=== PATIENT | male | born 1985 | race Caucasian/White ===

== ENCOUNTER 2017-05-05 10:36 | Emergency (ER) | payer OTHER ==
[~2017-05-05] VITALS: Ht 182.9 cm; Wt 163.3 kg
--- OUTSIDE RECORDS SUMMARY | 2017-05-05 10:44 | XMS REPORT ---
Author Author REYNALDO MARTINEZ Organization [facility] Address [address] [place] [address] Care Team Providers Care Federal District Clerk Name Role Phone REYNALDO MARTINEZ Unavailable PROBLEMS Type Condition ICD9-CM Code [id number] Code Onset Dates Condition Status SNOMED Code Problem Fatigue R53.83 Active 40031427 Problem Hypogonadism in male E29.1 Active 10237228 Problem Obesity E66.9 Active 838730883 Problem Major depressive disorder, recurrent episode, in partial remission F33.41 Active 94250919 Problem Anxiety state, unspecified F41.1 Active 998844662 Problem Hypertension I10 Active 97274839 Problem Hyperinsulinemia E16.1 Active 64299364 Problem Esophageal spasm K22.4 Active 31331779 Problem Hyperlipidemia, unspecified hyperlipidemia type E78.5 Active 22969149 Problem Unspecified episodic mood disorder 296.90 Active 731798587 Problem Heat exhaustion, unspecified 992.5 Active 24655738 Problem Obesity, unspecified 278.00 Active 566650327 Problem Unspecified sleep apnea 780.57 Active 43932091 Problem Counseling on injury prevention V65.43 Active Problem Encounter for long-term (current) use of other medications V58.69 Active 027111089 Problem Other dysfunctions of sleep stages or arousal from sleep 307.47 Active 798017500 Problem Sleep apnea G47.30 Active 58772221 ALLERGIES Unknown Allergies SOCIAL HISTORY No smoking Hx information available PLAN OF CARE VITAL SIGNS MEDICATIONS Medication Instructions Dosage Frequency Start Date End Date Duration Status Bydureon 2 MG Subcutaneous once weekly Inject 2mg Feb, Apr, Active Diltiazem HCl ER 180 MG Orally Once a day 1 capsule on an empty stomach in the morning 24h Feb, 90 days Active Bydureon 2 MG Subcutaneous once weekly Inject 2mg Apr, 30 days Active RESULTS No Results PROCEDURES No Known procedures IMMUNIZATIONS No Known Immunizations
--- OUTSIDE RECORDS SUMMARY | 2017-05-05 10:44 | XMS REPORT ---
Author Author REYNALDO MARTINEZ [facility] Address [address] [place] [address] Care Team Providers Care Auto Apprentice Mechanic Name Role Phone REYNALDO MARTINEZ Unavailable PROBLEMS Type Condition ICD9-CM Code YNM14-XT Code Onset Dates Condition Status SNOMED Code Problem Obesity, unspecified 278.00 Active 702710714 Problem Encounter for long-term (current) use of other medications V58.69 Active 060297682 Problem Unspecified sleep apnea 780.57 Active 70036792 Problem Unspecified episodic mood disorder 296.90 Active 990508243 Problem Heat exhaustion, unspecified 992.5 Active 96760169 Problem Counseling on injury prevention V65.43 Active Problem Other dysfunctions of sleep stages or arousal from sleep 307.47 Active 737891369 Problem Hypertension I10 Active 51149254 Problem Hyperinsulinemia E16.1 Active 65208598 Problem Fatigue R53.83 Active 52301937 Problem Sleep apnea G47.30 Active 98049496 Problem Hypogonadism in male E29.1 Active 97236438 Problem Obesity E66.9 Active 959753715 ALLERGIES Unknown Allergies SOCIAL HISTORY No smoking Hx information available PLAN OF CARE VITAL SIGNS MEDICATIONS Medication Instructions Dosage Frequency Start Date End Date Duration Status Victoza 18 MG/3ML Subcutaneous Once a day Inject 1.2mg along with the 1.8mg 24h September, Active RESULTS No Results PROCEDURES No Known procedures IMMUNIZATIONS No Known Immunizations
--- OUTSIDE RECORDS SUMMARY | 2017-05-05 10:44 | XMS REPORT ---
Author Author BRIANDA AUSTIN [facility] eClinicalWorks Address Unknown Phone Unavailable Care Team Providers Care Steel Pourer Name Role Phone BRIANDA AUSTIN Unavailable Allergies, Adverse Reactions, Alerts Substance Reaction Event Type Compazine clonic reaction Drug Allergy Viibryd rage Drug Allergy Wellbutrin XL suicidal ideations Drug Allergy Lexapro weight gain Drug Allergy Lamictal rash Drug Allergy Problems Problem Type Condition Code Onset Dates Condition Status Problem Unspecified sleep apnea 780.57 Active Problem Depressive disorder, not elsewhere classified 311 Active Problem Encounter for long-term (current) use of other medications V58.69 Active Problem Hyperinsulinemia E16.1 Active Problem Hypogonadism in male E29.1 Active Problem Hypertension I10 Active Problem Sleep apnea G47.30 Active Problem Panic disorder without agoraphobia 300.01 Active Problem Obesity E66.9 Active Problem Fatigue R53.83 Active Problem Heat exhaustion, unspecified 992.5 Active Problem Counseling on injury prevention V65.43 Active Assessment Gastroenteritis K52.9 Active Problem Unspecified episodic mood disorder 296.90 Active Problem Other dysfunctions of sleep stages or arousal from sleep 307.47 Active Problem Anxiety state, unspecified 300.00 Active Problem Major depressive disorder, single episode, unspecified 296.20 Active Problem Major depressive disorder, recurrent episode, severe, without mention of psychotic behavior 296.33 Active Problem Dysthymic disorder 300.4 Active Problem Obesity, unspecified 278.00 Active Medications Medication Code System Code Instructions Start Date End Date Status Dosage Benicar [facility] [address]-70 20 mg Dec 09, 2013 1 Tablet by Oral route 1 time per day Crestor [facility] [address]-10 10 mg May 29, 2014 1 Tablet by Oral route 1 time per day Cymbalta [facility] 25645334379 60 MG TAKE ONE CAPSULE BY MOUTH DAILY IN ADDITION TO DULOXETINE 30MG Gabapentin [facility] 89960161356 400 MG TAKE ONE CAPSULE BY MOUTH THREE TIMES DAILY Testosterone Cypionate [facility] [address]-65 200 MG/ML Intramuscular once every 2 weeks August 01, 2015 1 ml Zofran ODT [facility] [address]-47 4 MG Orally every 8 hrs prn November 20, 2015 1 tablet on the tongue and allow to dissolve Metanx [facility] [address]-19 3-35-2 MG Orally Twice a day 1 tablet Duloxetine HCl [facility] 31576878019 30 MG TAKE ONE CAPSULE BY MOUTH DAILY IN ADDITION TO DULOXETINE 60 MG BD Pen Needle Tammie U/F [facility] 8290-461678 32G X 4 MM Once a day August 13, 2015 as directed for use with Victoza pen injector Victoza [facility] [address]-46 18 MG/3ML Subcutaneous Once a day September 04, 2015 Inject 1.8mg Insulin Pen Needle [facility] 0 31G X 5 MM SQ once daily July 09, 2015 as directed Aciphex [facility] [address]-49 20 MG August 18, 2011 1 Tablet by Oral route 1 time per day Victoza [facility] [address]-01 18 MG/3ML Subcutaneous Once a day September 04, 2015 Inject 1.2mg along with the 1.8mg Lorazepam [facility] [address]-87 1 mg Feb 02, 2014 0.5-2 Tablet by Oral route 4 times per day PRN Naproxen [facility] [address]-88 500 mg May 29, 2014 1 Tablet by Oral route 1 time per day Benicar [facility] [address]-22 20 mg Orally Once a day August 06, 2015 1 tablet Procedures Procedure Coding System Code Date TORADOL (IM) 60 MG/2ML (UP TO 15 MG) CPT-4 J1885 November 20, 2015 THER/PROPH/DIAG INJ, SC/IM CPT-4 71673 November 20, 2015 Office Visit, Est Pt., Level 3 CPT-4 20173 November 20, 2015 Vital Signs Date/Time: November 20, 2015 Cardiac Monitoring Heart Rate 84 bpm Weight 415.2 lbs Height 73 in Blood Pressure Diastolic 90 mmHg Blood Pressure Systolic 132 mmHg Results No Known Results Summary Purpose eClinicalWorks Submission
--- OUTSIDE RECORDS SUMMARY | 2017-05-05 10:45 | XMS REPORT ---
Author Author REYNALDO MARTINEZ [facility] Address [address] [place] [address] Care Team Providers Care Spindle Repairer Name Role Phone REYNALDO MARTINEZ Unavailable PROBLEMS Type Condition ICD9-CM Code SYA69-JY Code Onset Dates Condition Status SNOMED Code Problem Obesity, unspecified 278.00 Active 902548687 Problem Encounter for long-term (current) use of other medications V58.69 Active 603908389 Problem Unspecified sleep apnea 780.57 Active 98566380 Problem Unspecified episodic mood disorder 296.90 Active 828689661 Problem Heat exhaustion, unspecified 992.5 Active 98068869 Problem Counseling on injury prevention V65.43 Active Problem Other dysfunctions of sleep stages or arousal from sleep 307.47 Active 026088722 Problem Hypertension I10 Active 74130412 Problem Hyperinsulinemia E16.1 Active 38489693 Problem Fatigue R53.83 Active 03854225 Problem Sleep apnea G47.30 Active 41366079 Problem Hypogonadism in male E29.1 Active 34476233 Problem Obesity E66.9 Active 496637173 ALLERGIES Unknown Allergies SOCIAL HISTORY No smoking Hx information available PLAN OF CARE VITAL SIGNS MEDICATIONS Medication Instructions Dosage Frequency Start Date End Date Duration Status Victoza 18 MG/3ML Subcutaneous Once a day Inject 1.2mg along with the 1.8mg 24h September, Active RESULTS No Results PROCEDURES No Known procedures IMMUNIZATIONS No Known Immunizations
--- OUTSIDE RECORDS SUMMARY | 2017-05-05 10:45 | XMS REPORT ---
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 Active 23978172 Problem Recurrent major depressive disorder in partial remission F33.41 Active 35674172 Problem Sleep apnea G47.30 Active 72866544 Problem Recurrent major depressive disorder in remission F33.40 Active 19374266 Problem Gastro-esophageal reflux disease without esophagitis K21.9 Active 940635108 Problem Weakness R53.1 Active 70484635 Problem Major depressive disorder, recurrent, mild F33.0 Active 444817374 Problem Anxiety disorder, unspecified F41.9 Active 135264355 Problem Hypogonadism in male E29.1 Active 00944430 Problem Hypertension I10 Active 16433876 Problem Obesity E66.9 Active 776106232 Problem Fatigue R53.83 Active 28851195 Problem Hyperlipidemia, unspecified hyperlipidemia type E78.5 Active 36162629 Problem Anxiety state, unspecified F41.1 Active 290708543 Problem Hyperinsulinemia E16.1 Active 27028768 Problem Major depressive disorder, recurrent episode, in partial remission F33.41 Active 27797240 Problem Esophageal spasm K22.4 Active 52519443 Problem Morbid (severe) obesity due to excess calories E66.01 Active 849340336 ALLERGIES No Information SOCIAL HISTORY Never Assessed PLAN OF CARE VITAL SIGNS MEDICATIONS Unknown Medications RESULTS No Results PROCEDURES No Known procedures IMMUNIZATIONS No Known Immunizations MEDICAL (GENERAL) HISTORY Type Description Date Medical History hyperlipidemia Medical History hypertension Surgical History Left ankle Surgical History bilateral carpal tunnel Surgical History Rt. thumb repair Surgical History Tarsal tunnel repair- Unsuccessful Hospitalization History surgeries Hospitalization History pericardiatis and pleuracy
--- OUTSIDE RECORDS SUMMARY | 2017-05-05 10:45 | XMS REPORT ---
Author Author REYNALDO MARTINEZ [facility] eClinicalWorks Address Unknown Phone Unavailable Care Team Providers Care Zyglo Inspector Name Role Phone REYNALDO MARTINEZ CP Unavailable Allergies No Known Allergies Problems Problem Type Condition Code Onset Dates [...] Counseling on injury prevention V65.43 Active Assessment Hyperinsulinemia E16.1 Active Problem Unspecified episodic mood disorder 296.90 [...] Instructions Start Date End Date Status Dosage Victoza NDC [address]-94 18 MG/3ML Subcutaneous Once a day September 04, 2015 Inject 1.8mg Victoza [facility] [address]-96 18 MG/3ML Subcutaneous Once a day September 04, 2015 Inject 1.2mg along with the 1.8mg Results No Known Results Summary Purpose eClinicalWorks Submission
--- OUTSIDE RECORDS SUMMARY | 2017-05-05 10:45 | XMS REPORT ---
Author Author REYNALDO MARTINEZ [facility] eClinicalWorks Address Unknown Phone Unavailable Care Team Providers Care Global Consumer Sector Vice President Name Role Phone REYNALDO MARTINEZ CP Unavailable Allergies No Known Allergies Problems Problem Type Condition Code Onset Dates Condition Status Problem Depressive disorder, not elsewhere classified 311 Active Problem Sleep apnea G47.30 Active Problem Panic disorder without agoraphobia 300.01 Active Problem Hyperlipidemia, unspecified hyperlipidemia type E78.5 Active Problem Unspecified episodic mood disorder 296.90 Active Problem Hypertension I10 Active Problem Esophageal spasm K22.4 Active Problem Obesity E66.9 Active Problem Fatigue R53.83 Active Problem Hyperinsulinemia E16.1 Active Problem Hypogonadism in male E29.1 Active Problem Major depressive disorder, single episode, unspecified 296.20 Active Problem Dysthymic disorder 300.4 Active Problem Heat exhaustion, unspecified 992.5 Active Problem Counseling on injury prevention V65.43 Active Problem Major depressive disorder, recurrent episode, severe, without mention of psychotic behavior 296.33 Active Problem Obesity, unspecified 278.00 Active Problem Other dysfunctions of sleep stages or arousal from sleep 307.47 Active Problem Unspecified sleep apnea 780.57 Active Problem Anxiety state, unspecified 300.00 Active Problem Encounter for long-term (current) use of other medications V58.69 Active Medications No Known Medications Results No Known Results Summary Purpose eClinicalWorks Submission
--- OUTSIDE RECORDS SUMMARY | 2017-05-05 10:45 | XMS REPORT ---
Author Author REYNALDO MARTINEZ [facility] eClinicalWorks Address Unknown Phone Unavailable Care Team Providers Care Shipping & Receiving Lead Name Role Phone REYNALDO MARTINEZ CP Unavailable [...] Counseling on injury prevention V65.43 Active Problem Unspecified episodic mood disorder 296.90 [...] Start Date End Date Status Dosage Victoza [facility] [address]-05 18 MG/3ML Subcutaneous Once a day July 09, 2015 3mg (1.8mg and 1.2mg) in divided doses Results No Known Results Summary Purpose eClinicalWorks Submission
--- OUTSIDE RECORDS SUMMARY | 2017-05-05 10:45 | XMS REPORT ---
Author Author REYNALDO MARTINEZ [facility] eClinicalWorks Address Unknown Phone Unavailable Care Team Providers Care Clinical Trial Associate Name Role Phone REYNALDO MARTINEZ CP Unavailable Allergies, Adverse Reactions, Alerts Substance Reaction Event Type Compazine clonic reaction Drug Allergy Viibryd rage Drug Allergy Wellbutrin XL suicidal ideations Drug Allergy Lexapro weight gain Drug Allergy Lamictal rash Drug Allergy Problems Problem Type Condition Code Onset Dates Condition Status Problem Unspecified sleep apnea 780.57 Active Assessment Hyperinsulinemia E16.1 Active Problem Encounter for long-term (current) use of other medications V58.69 Active Assessment Hyperlipidemia, unspecified hyperlipidemia type E78.5 Active Problem Depressive disorder, not elsewhere classified 311 Active Problem Sleep apnea G47.30 Active Problem Panic disorder without agoraphobia 300.01 Active Problem Hyperlipidemia, unspecified hyperlipidemia type E78.5 Active Problem Hypertension I10 Active Problem Unspecified episodic mood disorder 296.90 Active Assessment Epigastric pain R10.13 Active Problem Esophageal spasm K22.4 Active Assessment Esophageal spasm K22.4 Active Problem Obesity E66.9 [...] Active Problem Anxiety state, unspecified 300.00 Active Medications Medication Code System Code Instructions Start Date End Date Status Dosage Gabapentin [facility] 12077303463 400 MG TAKE ONE CAPSULE BY MOUTH THREE TIMES DAILY Duloxetine HCl ND 51228661394 30 MG TAKE ONE CAPSULE BY MOUTH DAILY IN ADDITION TO DULOXETINE 60 MG Diltiazem HCl ER [facility] [address]-52 180 MG Orally Once a day Feb 14, 2016 1 capsule on an empty stomach in the morning Benicar [facility] [address]-08 20 mg Dec 09, 2013 1 Tablet by Oral route 1 time per day Testosterone Cypionate [facility] [address]-20 200 MG/ML Intramuscular once every 2 weeks August 01, 2015 1 ml Lorazepam [facility] [address]-75 1 mg Feb 02, 2014 0.5-2 Tablet by Oral route 4 times per day PRN Cymbalta [facility] [address]-10 60 mg TAKE ONE CAPSULE BY MOUTH DAILY IN ADDITION TO DULOXETINE 30MG Aciphex [facility] [address]-91 20 MG August 18, 2011 1 Tablet by Oral route 1 time per day Crestor [facility] [address]-27 20 mg Orally once a day Feb 14, 2016 1 tablet BD Pen Needle Tammie U/F [facility] 8290-746026 32G X 4 MM Once a day August 13, 2015 as directed for use with Victoza pen injector Victoza [facility] [address]-92 18 MG/3ML Subcutaneous Once a day September 04, 2015 Inject 1.8mg Procedures Procedure Coding System Code Date Office Visit, Est Pt., Level 3 CPT-4 37496 Feb 14, 2016 IMMUNOASSAY,INFECTIOUS AGENT CPT-4 86302 Feb 14, 2016 Vital Signs Date/Time: Feb 14, 2016 Cardiac Monitoring Heart Rate 74 bpm Weight 420 lbs Height 73 in BMI 55.41 Index Blood Pressure Diastolic 84 mmHg Blood Pressure Systolic 142 mmHg Results Name Result Date Reference Range Unit Abnormality Flag H PYLORI (IN HOUSE) ----H. PYLORI Negative [id number] ----Control + [id number] ----Lot # [id number] ----Exp date [id number] Summary Purpose eClinicalWorks Submission
--- OUTSIDE RECORDS SUMMARY | 2017-05-05 10:45 | XMS REPORT ---
Author Author REYNALDO MARTINEZ [facility] eClinicalWorks Address Unknown Phone Unavailable Care Team Providers Care Test Engineering Technician Name Role Phone REYNALDO MARTINEZ CP Unavailable [...] medications V58.69 Active Problem Hyperinsulinemia E16.1 Active Assessment Hyperlipidemia, unspecified hyperlipidemia type E78.5 Active Problem Hypogonadism in male E29.1 Active Assessment Sleep apnea, unspecified G47.30 Active Problem Hypertension I10 Active Problem Sleep [...] Start Date End Date Status Dosage Benicar [facility] [address]-93 20 mg Orally Once a day August 06, 2015 1 tablet BD Pen Needle Tammie U/F [facility] 8290-545876 32G X 4 MM Once a day August 13, 2015 as directed for use with Victoza pen injector Duloxetine HCl [facility] 51436059833 30 MG TAKE ONE CAPSULE BY MOUTH DAILY IN ADDITION TO DULOXETINE 60 MG Testosterone Cypionate [facility] [address]-69 200 MG/ML Intramuscular once every 2 weeks August 01, 2015 1 ml Aciphex [facility] [address]-06 20 MG August 18, 2011 1 Tablet by Oral route 1 time per day Crestor [facility] [address]-87 10 mg May 29, 2014 1 Tablet by Oral route 1 time per day Gabapentin [facility] 08760158667 400 MG TAKE ONE CAPSULE BY MOUTH THREE TIMES DAILY Victoza [facility] [address]-20 18 MG/3ML Subcutaneous Once a day September 04, 2015 Inject 1.8mg Insulin Pen Needle [facility] 0 31G X 5 MM SQ once daily July 09, 2015 as directed Cymbalta [facility] 13135193340 60 MG TAKE ONE CAPSULE BY MOUTH DAILY IN ADDITION TO DULOXETINE 30MG Benicar [facility] [address]-63 20 mg Dec 09, 2013 1 Tablet by Oral route 1 time per day Lorazepam [facility] [address]-26 1 mg Feb 02, 2014 0.5-2 Tablet by Oral route 4 times per day PRN Procedures Procedure Coding System Code Date LIPID PANEL CPT-4 27866 November 26, 2015 Office Visit, Est Pt., Level 3 CPT-4 34421 November 26, 2015 ASSAY OF INSULIN CPT-4 66186 November 26, 2015 VENIPUNCT, ROUTINE* CPT-4 14181 November 26, 2015 Vital Signs Date/Time: November 26, 2015 Cardiac Monitoring Heart Rate 76 bpm Weight 414.2 lbs Height 73 in BMI 54.64 Index Blood Pressure Diastolic 90 mmHg Blood Pressure Systolic 138 mmHg Results No Known Results Summary Purpose eClinicalWorks Submission
--- OUTSIDE RECORDS SUMMARY | 2017-05-05 10:45 | XMS REPORT ---
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 Active 86307403 Problem Recurrent major depressive disorder in partial remission F33.41 Active 74351979 Problem Sleep apnea G47.30 Active 75639406 Problem Recurrent major depressive disorder in remission F33.40 Active 23187097 Problem Gastro-esophageal reflux disease without esophagitis K21.9 Active 244997646 Problem Weakness R53.1 Active 62170209 Problem Major depressive disorder, recurrent, mild F33.0 Active 763179930 Problem Anxiety disorder, unspecified F41.9 Active 176503400 Problem Hypogonadism in male E29.1 Active 56236610 Problem Hypertension I10 Active 39138650 Problem Obesity E66.9 Active 983841849 Problem Fatigue R53.83 Active 87819387 Problem Hyperlipidemia, unspecified hyperlipidemia type E78.5 Active 66962048 Problem Anxiety state, unspecified F41.1 Active 703204946 Problem Hyperinsulinemia E16.1 Active 62491519 Problem Major depressive disorder, recurrent episode, in partial remission F33.41 Active 23569410 Problem Esophageal spasm K22.4 Active 63211874 Problem Morbid (severe) obesity due to excess calories E66.01 Active 712519456 ALLERGIES No Information SOCIAL HISTORY Never Assessed [...]
--- OUTSIDE RECORDS SUMMARY | 2017-05-05 10:45 | XMS REPORT ---
Author Author REYNALDO MARTINEZ [facility] eClinicalWorks Address Unknown Phone Unavailable Care Team Providers Care Operations Project Manager Name Role Phone REYNALDO MARTINEZ CP Unavailable [...] V58.69 Active Problem Hyperinsulinemia E16.1 Active Assessment Hypertension I10 Active Problem Hypogonadism in male E29.1 Active Assessment Hypogonadism in male E29.1 Active Assessment Sleep apnea G47.30 Active Problem Hypertension I10 Active Problem [...] Instructions Start Date End Date Status Dosage Naproxen [facility] [address]-47 500 mg May 29, 2014 1 Tablet by Oral route 1 time per day Aciphex [facility] [address]-03 20 MG August 18, 2011 1 Tablet by Oral route 1 time per day Testosterone Cypionate [facility] [address]-54 200 MG/ML Intramuscular once every 2 weeks August 01, 2015 1 ml Metanx [facility] [address]-42 3-35-2 MG Orally Twice a day 1 tablet Benicar [facility] [address]-73 20 mg Orally Once a day August 06, 2015 1 tablet Cymbalta [facility] [address]-62 60 MG TAKE ONE CAPSULE BY MOUTH DAILY IN ADDITION TO DULOXETINE 30MG Duloxetine HCl [facility] [address]-19 30 MG TAKE ONE CAPSULE BY MOUTH DAILY IN ADDITION TO DULOXETINE 60 MG Gabapentin [facility] [address]-23 400 MG TAKE ONE CAPSULE BY MOUTH THREE TIMES DAILY Crestor [facility] [address]-12 10 mg May 29, 2014 1 Tablet by Oral route 1 time per day Insulin Pen Needle [facility] 0 31G X 5 MM SQ once daily July 09, 2015 as directed Lorazepam [facility] [address]-82 1 mg Feb 02, 2014 0.5-2 Tablet by Oral route 4 times per day PRN Benicar [facility] [address]-57 20 mg Dec 09, 2013 1 Tablet by Oral route 1 time per day Victoza [facility] [address]-84 18 MG/3ML Subcutaneous Once a day July 09, 2015 3mg Procedures Procedure Coding System Code Date Office Visit, Est Pt., Level 3 CPT-4 29815 August 06, 2015 Vital Signs Date/Time: August 06, 2015 Temperature 98.3 F Weight 449.3 lbs Height 73 in BMI 59.27 Index Blood Pressure Diastolic 90 mmHg Blood Pressure Systolic 150 mmHg Cardiac Monitoring Heart Rate 88 bpm Results No Known Results Summary Purpose eClinicalWorks Submission
--- OUTSIDE RECORDS SUMMARY | 2017-05-05 10:45 | XMS REPORT ---
Author Author REYNALDO MARTINEZ [facility] Address [address] [place] [address] Care Team Providers Care Stoper Name Role Phone REYNALDO MARTINEZ Unavailable PROBLEMS Type Condition ICD9-CM Code BPV46-BG Code Onset Dates Condition Status SNOMED Code Problem Encounter for long-term (current) use of other medications V58.69 Active 392868735 Problem Fatigue R53.83 Active 00013028 Problem Sleep apnea G47.30 Active 40774213 Problem Esophageal spasm K22.4 Active 90928202 Problem Hyperlipidemia, unspecified hyperlipidemia type E78.5 Active 65522569 Problem Hypogonadism in male E29.1 Active 78889229 Problem Obesity E66.9 Active 695753425 Problem Hypertension I10 Active 40112873 Problem Hyperinsulinemia E16.1 Active 44669857 Assessment Esophageal spasm K22.4 Mar, Active 03982854 Problem Counseling on injury prevention V65.43 Active Problem Other dysfunctions of sleep stages or arousal from sleep 307.47 Active 151944340 Problem Unspecified episodic mood disorder 296.90 Active 073701484 Problem Obesity, unspecified 278.00 Active 709455165 Problem Heat exhaustion, unspecified 992.5 Active 39771236 Problem Unspecified sleep apnea 780.57 Active 71710483 ALLERGIES Substance Reaction Event Type Date Status Compazine clonic reaction Drug Allergy Mar, Active Viibryd rage Drug Allergy Mar, Active Wellbutrin XL suicidal ideations Drug Allergy Mar, Active Lexapro weight gain Drug Allergy Mar, Active Lamictal rash Drug Allergy Mar, Active SOCIAL HISTORY No smoking Hx information available PLAN OF CARE VITAL SIGNS Height 73 in 2016-03-25 Weight 430.7 lbs 2016-03-25 Heart Rate 76 bpm 2016-03-25 Respiratory Rate 20 2016-03-25 BMI 56.82 kg/m2 2016-03-25 Blood pressure systolic 140 mmHg 2016-03-25 Blood pressure diastolic 84 mmHg 2016-03-25 MEDICATIONS Medication Instructions Dosage Frequency Start Date End Date Duration Status Lorazepam 1 mg 0.5-2 Tablet by Oral route 4 times per day PRN Feb, Active Testosterone Cypionate 200 MG/ML Intramuscular once every 2 weeks 1 ml Jul, Active Benicar 20 mg 1 Tablet by Oral route 1 time per day Dec, Active Diltiazem HCl ER 180 MG Orally Once a day 1 capsule on an empty stomach in the morning 24h Feb, Active Bydureon 2 MG Subcutaneous once weekly Inject 2mg Feb, Active BD Pen Needle Tammie U/F 32G X 4 MM as directed for use with Victoza pen injector 24h Aug, Active Gabapentin 400 MG TAKE ONE CAPSULE BY MOUTH THREE TIMES DAILY 30 Active Duloxetine HCl 30 MG TAKE ONE CAPSULE BY MOUTH DAILY IN ADDITION TO DULOXETINE 60 MG 90 Active Insulin Pen Needle 31G X 5 MM SQ once daily as directed 24h 07 Jul, 2015 Active Cymbalta 60 mg TAKE ONE CAPSULE BY MOUTH DAILY IN ADDITION TO DULOXETINE 30MG 90 Active Crestor 20 mg Orally once a day 1 tablet 24h Feb, Active RESULTS No Results PROCEDURES Procedure Date Ordered Related Diagnosis Body Site Office Visit, Est Pt., Level 3 Mar 25, 2016 IMMUNIZATIONS No Known Immunizations
--- OUTSIDE RECORDS SUMMARY | 2017-05-05 10:45 | XMS REPORT ---
Author Author REYNALDO MARTINEZ [facility] [employer] Address Unknown Phone Unavailable Care Team Providers Care Geographic Information Scientist Name Role Phone REYNALDO MARTINEZ CP Unavailable Allergies No Known Allergies Problems Problem Type Condition Code Onset Dates Condition Status Problem Depressive disorder, not elsewhere classified 311 Active Problem Sleep apnea G47.30 Active Problem Panic disorder without agoraphobia 300.01 Active Problem Hyperlipidemia, unspecified hyperlipidemia type E78.5 Active Problem Unspecified episodic mood disorder 296.90 Active Problem Hypertension I10 Active Assessment Right upper quadrant abdominal pain R10.11 Active Problem Esophageal spasm K22.4 Active Problem [...]
--- OUTSIDE RECORDS SUMMARY | 2017-05-05 10:46 | XMS REPORT ---
Author Author REYNALDO MARTINEZ [facility] [employer] Address Unknown Phone Unavailable Care Team Providers Care Social Contact Worker Name Role Phone REYNADLO MARTINEZ CP Unavailable Allergies No Known Allergies [...] use of other medications V58.69 Active Medications Medication Code System Code Instructions Start Date End Date Status Dosage Sabra [facility] [address]-44 2 MG Subcutaneous Feb 20, 2016 as directed Results No Known Results Summary Purpose eClinicalWorks Submission
--- OUTSIDE RECORDS SUMMARY | 2017-05-05 10:46 | XMS REPORT ---
Author Author [facility] Address [address] [place] [address] Care Team Providers Care Auto Slip Cover Installer Name Role Phone AMINTA JEANINE Unavailable PROBLEMS Type Condition ICD9-CM Code [id number] Code Onset Dates Condition Status SNOMED Code Problem Body mass index (BMI) of 60.0-69.9 in adult Z68.44 Active 064185207 Problem Obstructive sleep apnea G47.33 Active 78774295 Problem Panic disorder with agoraphobia F40.01 Active 83089085 Problem Recurrent major depressive disorder in partial remission F33.41 Active 68434949 Problem Sleep apnea G47.30 Active 88514923 Problem Recurrent major depressive disorder in remission F33.40 Active 25774440 Problem Gastro-esophageal reflux disease without esophagitis K21.9 Active 028667073 Problem Weakness R53.1 Active 15497097 Problem Major depressive disorder, recurrent, mild F33.0 Active 889030097 Problem Anxiety disorder, unspecified F41.9 Active 623821348 Problem Hypogonadism in male E29.1 Active 31881929 Problem Hypertension I10 Active 08668726 Problem Obesity E66.9 Active 883416369 Problem Fatigue R53.83 Active 97093255 Problem Hyperlipidemia, unspecified hyperlipidemia type E78.5 Active 41793585 Problem Anxiety state, unspecified F41.1 Active 533542682 Problem Hyperinsulinemia E16.1 Active 35758142 Problem Major depressive disorder, recurrent episode, in partial remission F33.41 Active 52232189 Problem Esophageal spasm K22.4 Active 76031489 Problem Morbid (severe) obesity due to excess calories E66.01 Active 003199341 ALLERGIES No Information SOCIAL HISTORY Never Assessed PLAN OF CARE VITAL SIGNS MEDICATIONS Medication Instructions Dosage Frequency Start Date End Date Duration Status Lexapro 10 mg Orally Once a day 1 tablet 24h Jul, Active Cymbalta 60 mg Orally Once a day 2 tablet 24h Active Gabapentin 400 mg Orally 3 times a day TAKE ONE CAPSULE BY MOUTH THREE TIMES DAILY 8h Active RESULTS No Results PROCEDURES No Known procedures IMMUNIZATIONS No Known Immunizations MEDICAL (GENERAL) HISTORY Type Description Date Medical History hyperlipidemia Medical History hypertension Surgical History Left ankle Surgical History bilateral carpal tunnel Surgical History Rt. thumb repair Surgical History Tarsal tunnel repair- Unsuccessful Hospitalization History surgeries Hospitalization History pericardiatis and pleuracy
--- OUTSIDE RECORDS SUMMARY | 2017-05-05 10:46 | XMS REPORT ---
Author Author REYNALDO MARTINEZ Organization [employer] Address Unknown Phone Unavailable Care Team Providers Care Inspector Open Die Name Role Phone REYNALDO MARTINEZ CP Unavailable Allergies No Known Allergies Problems Problem Type Condition Code Onset Dates Condition Status Problem Major depressive disorder, single episode, unspecified 296.20 Active Problem Other dysfunctions of sleep stages or arousal from sleep 307.47 Active Problem Dysthymic disorder 300.4 Active Problem Depressive disorder, not elsewhere classified 311 Active Problem Encounter for long-term (current) use of other medications V58.69 Active Problem Panic disorder without agoraphobia 300.01 Active Problem Major depressive disorder, recurrent episode, severe, without mention of psychotic behavior 296.33 Active Problem Anxiety state, unspecified 300.00 Active Problem Unspecified sleep apnea 780.57 Active Problem Obesity, unspecified 278.00 Active Problem Unspecified episodic mood disorder 296.90 Active Problem Heat exhaustion, unspecified 992.5 Active Problem Counseling on injury prevention V65.43 Active Medications Medication Code System Code Instructions Start Date End Date Status Dosage Gabapentin [facility] [address]-18 400 MG TAKE ONE CAPSULE BY MOUTH THREE TIMES DAILY Duloxetine HCl [facility] [address]-39 30 MG TAKE ONE CAPSULE BY MOUTH DAILY IN ADDITION TO DULOXETINE 60 MG Cymbalta [facility] [address]-62 60 MG TAKE ONE CAPSULE BY MOUTH DAILY IN ADDITION TO DULOXETINE 30MG Results No Known Results Summary Purpose eClinicalWorks Submission
--- OUTSIDE RECORDS SUMMARY | 2017-05-05 10:46 | XMS REPORT ---
Author Author REYNALDO MARTINEZ [facility] [employer] Address Unknown Phone Unavailable Care Team Providers Care Engine Setter Name Role Phone REYNALDO MARTINEZ CP Unavailable [...] Start Date End Date Status Dosage Victoza [facility] [address]-37 18 MG/3ML Subcutaneous Once a day September 04, 2015 Inject 1.2mg along with the 1.8mg Results No Known Results Summary Purpose eClinicalWorks Submission
--- OUTSIDE RECORDS SUMMARY | 2017-05-05 10:46 | XMS REPORT ---
Author Author REYNALDO MARTINEZ Organization [employer] Address Unknown Phone Unavailable Care Team Providers Care Controller Operations And Hr Manager Name Role Phone REYNALDO MARTINEZ CP [...] Start Date End Date Status Dosage Gabapentin [facility] [address]-37 400 MG TAKE ONE CAPSULE BY MOUTH THREE TIMES DAILY Duloxetine HCl [facility] [address]-05 30 MG TAKE ONE CAPSULE BY MOUTH DAILY IN ADDITION TO DULOXETINE 60 MG Cymbalta [facility] [address]-74 60 MG TAKE ONE CAPSULE BY MOUTH DAILY IN ADDITION TO DULOXETINE 30MG Results No Known Results Summary Purpose eClinicalWorks Submission
--- OUTSIDE RECORDS SUMMARY | 2017-05-05 10:46 | XMS REPORT ---
Author Author REYNALDO MARTINEZ [facility] [employer] Address Unknown Phone Unavailable Care Team Providers Care Packing Machine Can Feeder Name Role Phone REYNALDO MARTINEZ CP Unavailable Allergies No Known Allergies Problems Problem Type Condition Code Onset Dates Condition Status Problem Depressive disorder, not elsewhere classified 311 Active Problem Sleep apnea G47.30 Active Problem Panic disorder without agoraphobia 300.01 Active Problem Hyperlipidemia, unspecified hyperlipidemia type E78.5 Active Problem Unspecified episodic mood disorder 296.90 Active Problem Hypertension I10 Active Assessment Epigastric pain R10.13 Active Problem Esophageal spasm K22.4 Active Problem [...]
--- OUTSIDE RECORDS SUMMARY | 2017-05-05 10:46 | XMS REPORT ---
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 Active 24981138 Problem Recurrent major depressive disorder in partial remission F33.41 Active 00978638 Problem Sleep apnea G47.30 Active 14244842 Problem Recurrent major depressive disorder in remission F33.40 Active 32545805 Problem Gastro-esophageal reflux disease without esophagitis K21.9 Active 950439233 Problem Weakness R53.1 Active 50683010 Problem Major depressive disorder, recurrent, mild F33.0 Active 950681129 Problem Anxiety disorder, unspecified F41.9 Active 396732704 Problem Hypogonadism in male E29.1 Active 67631815 Problem Hypertension I10 Active 23696496 Problem Obesity E66.9 Active 794071069 Problem Fatigue R53.83 Active 17045777 Problem Hyperlipidemia, unspecified hyperlipidemia type E78.5 Active 59085722 Problem Anxiety state, unspecified F41.1 Active 703938745 Problem Hyperinsulinemia E16.1 Active 20897092 Problem Major depressive disorder, recurrent episode, in partial remission F33.41 Active 48223139 Problem Esophageal spasm K22.4 Active 02855644 Problem Morbid (severe) obesity due to excess calories E66.01 Active 551697269 ALLERGIES Substance Reaction Event Type Date Status Compazine clonic reaction Drug Allergy Aug, Active Bydureon swelling Drug Allergy Aug, Active Viibryd rage Drug Allergy Aug, Active Wellbutrin XL suicidal ideations Drug Allergy Aug, Active Lexapro weight gain Drug Allergy Aug, Active Lamictal rash Drug Allergy Aug, Active SOCIAL HISTORY Never Assessed PLAN OF CARE Activity Details Follow Up 6 Months Reason:BP VITAL SIGNS Height 73 in 2016-08-25 Weight 455.3 lbs 2016-08-25 Temperature 98.2 degrees Fahrenheit 2016-08-25 Heart Rate 72 bpm 2016-08-25 Respiratory Rate 20 2016-08-25 BMI 60.06 kg/m2 2016-08-25 Blood pressure systolic 138 mmHg 2016-08-25 Blood pressure diastolic 82 mmHg 2016-08-25 MEDICATIONS Medication Instructions Dosage Frequency Start Date End Date Duration Status Lexapro 10 mg Orally Once a day 1 tablet 24h Jul, Active Diltiazem HCl ER 180 MG Orally Once a day 1 capsule on an empty stomach in the morning 24h Feb, 90 days Active Testosterone Cypionate 200 MG/ML Intramuscular once monthly inject 1 ml Jul, 30 days Active Crestor 20 mg Orally once a day 1 tablet 24h Feb, Active Benicar 20 mg 1 Tablet by Oral route 1 time per day Dec, Active BD Pen Needle Tammie U/F 32G X 4 MM as directed for use with Victoza pen injector 24h Aug, Active Gabapentin 400 mg Orally 3 times a day TAKE ONE CAPSULE BY MOUTH THREE TIMES DAILY 8h Active Cymbalta 60 mg Orally Once a day 2 tablet 24h Active Lorazepam 1 mg 0.5-2 Tablet by Oral route 4 times per day PRN Feb, Active Insulin Pen Needle 31G X 5 MM SQ once daily as directed 24h Jul, Active RESULTS No Results PROCEDURES No Known procedures IMMUNIZATIONS No Known Immunizations MEDICAL (GENERAL) HISTORY Type Description Date Medical History hyperlipidemia Medical History hypertension Surgical History Left ankle Surgical History bilateral carpal tunnel Surgical History Rt. thumb repair Surgical History Tarsal tunnel repair- Unsuccessful Hospitalization History surgeries Hospitalization History pericardiatis and pleuracy
--- OUTSIDE RECORDS SUMMARY | 2017-05-05 10:46 | XMS REPORT ---
Author Author REYNALDO MARTINEZ [facility] Address [address] [place] [address] Care Team Providers Care Cafeteria Clerk Name Role Phone REYNALDO MARTINEZ Unavailable PROBLEMS Type Condition ICD9-CM Code PLU31-HS Code Onset Dates Condition Status SNOMED Code Problem Obesity, unspecified 278.00 Active 429946029 Problem Encounter for long-term (current) use of other medications V58.69 Active 294032720 Problem Unspecified sleep apnea 780.57 Active 81506934 Problem Unspecified episodic mood disorder 296.90 Active 905226435 Problem Heat exhaustion, unspecified 992.5 Active 73443942 Problem Counseling on injury prevention V65.43 Active Problem Other dysfunctions of sleep stages or arousal from sleep 307.47 Active 680052165 Problem Hypertension I10 Active 80447626 Problem Hyperinsulinemia E16.1 Active 08454919 Problem Fatigue R53.83 Active 62090597 Problem Sleep apnea G47.30 Active 28038508 Problem Hypogonadism in male E29.1 Active 10236664 Problem Obesity E66.9 Active 125550077 ALLERGIES Unknown Allergies SOCIAL HISTORY No smoking Hx information available PLAN OF CARE VITAL SIGNS MEDICATIONS Medication Instructions Dosage Frequency Start Date End Date Duration Status Duloxetine HCl 30 MG TAKE ONE CAPSULE BY MOUTH DAILY IN ADDITION TO DULOXETINE 60 MG Active Cymbalta 60 mg TAKE ONE CAPSULE BY MOUTH DAILY IN ADDITION TO DULOXETINE 30MG Active RESULTS No Results PROCEDURES No Known procedures IMMUNIZATIONS No Known Immunizations
--- OUTSIDE RECORDS SUMMARY | 2017-05-05 10:46 | XMS REPORT ---
Author Author REYNALDO MARTINEZ [facility] Address [address] [place] [address] Care Team Providers Care Track Patrol Name Role Phone REYNALDO MARTINEZ Unavailable PROBLEMS Type Condition ICD9-CM Code LEP50-MB Code Onset Dates Condition Status SNOMED Code Problem Obesity, unspecified 278.00 Active 653759576 Problem Encounter for long-term (current) use of other medications V58.69 Active 086825398 Problem Unspecified sleep apnea 780.57 Active 57938267 Problem Unspecified episodic mood disorder 296.90 Active 698310379 Problem Heat exhaustion, unspecified 992.5 Active 65825454 Problem Counseling on injury prevention V65.43 Active Problem Other dysfunctions of sleep stages or arousal from sleep 307.47 Active 968916695 Problem Hypertension I10 Active 44634667 Problem Hyperinsulinemia E16.1 Active 01299050 Problem Fatigue R53.83 Active 48309362 Problem Sleep apnea G47.30 Active 25881229 Problem Hypogonadism in male E29.1 Active 87364829 Problem Obesity E66.9 Active 486335103 ALLERGIES Unknown Allergies SOCIAL HISTORY No smoking Hx information available PLAN OF CARE VITAL SIGNS MEDICATIONS Unknown Medications RESULTS No Results PROCEDURES No Known procedures IMMUNIZATIONS No Known Immunizations
--- OUTSIDE RECORDS SUMMARY | 2017-05-05 10:46 | XMS REPORT ---
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 Active 97362293 Problem Recurrent major depressive disorder in partial remission F33.41 Active 49176654 Problem Sleep apnea G47.30 Active 40730853 Problem Recurrent major depressive disorder in remission F33.40 Active 93312107 Problem Gastro-esophageal reflux disease without esophagitis K21.9 Active 963302781 Problem Weakness R53.1 Active 19071103 Problem Major depressive disorder, recurrent, mild F33.0 Active 311439203 Problem Anxiety disorder, unspecified F41.9 Active 219844218 Problem Hypogonadism in male E29.1 Active 18314881 Problem Hypertension I10 Active 84621870 Problem Obesity E66.9 Active 997027465 Problem Fatigue R53.83 Active 49310131 Problem Hyperlipidemia, unspecified hyperlipidemia type E78.5 Active 23205648 Problem Anxiety state, unspecified F41.1 Active 102546107 Problem Hyperinsulinemia E16.1 Active 00379650 Problem Major depressive disorder, recurrent episode, in partial remission F33.41 Active 15733492 Problem Esophageal spasm K22.4 Active 40375769 Problem Morbid (severe) obesity due to excess calories E66.01 Active 247576112 ALLERGIES Substance Reaction Event Type Date Status Compazine clonic reaction Drug Allergy Jun, Active Bydureon swelling Drug Allergy Jun, Active Viibryd rage Drug Allergy Jun, Active Wellbutrin XL suicidal ideations Drug Allergy Jun, Active Lexapro weight gain Drug Allergy Jun, Active Lamictal rash Drug Allergy Jun, Active SOCIAL HISTORY Never Assessed PLAN OF CARE Activity Details Follow Up 4 Weeks Reason:obesity VITAL SIGNS Height 73 in 2016-06-30 Weight 455.7 lbs 2016-06-30 Temperature 98.4 degrees Fahrenheit 2016-06-30 Heart Rate 80 bpm 2016-06-30 Respiratory Rate 20 2016-06-30 Oximetry on room air:96 % 2016-06-30 BMI 60.12 kg/m2 2016-06-30 Blood pressure systolic 118 mmHg 2016-06-30 Blood pressure diastolic 88 mmHg 2016-06-30 MEDICATIONS Medication Instructions Dosage Frequency Start Date End Date Duration Status Lorazepam 1 mg 0.5-2 Tablet by Oral route 4 times per day PRN Feb, Active Testosterone Cypionate 200 MG/ML Intramuscular once every 2 weeks 1 ml Jul, Active Benicar 20 mg 1 Tablet by Oral route 1 time per day Dec, Active Duloxetine HCl 30 MG TAKE ONE CAPSULE BY MOUTH DAILY IN ADDITION TO DULOXETINE 60 MG 90 Active Diltiazem HCl ER 180 MG Orally Once a day 1 capsule on an empty stomach in the morning 24h Feb, 90 days Active BD Pen Needle Tammie U/F 32G X 4 MM as directed for use with Victoza pen injector 24h Aug, Active Insulin Pen Needle 31G X 5 MM SQ once daily as directed 24h 07 Jul, 2015 Active Saxenda 18 MG/3ML Subcutaneous Once a day dose escalation 24h Jun, Active Gabapentin 400 MG TAKE ONE CAPSULE BY MOUTH THREE TIMES DAILY 30 Active Cymbalta 60 mg TAKE ONE CAPSULE BY MOUTH DAILY IN ADDITION TO DULOXETINE 30MG 90 Active Crestor 20 mg Orally once a day 1 tablet 24h Feb, Active RESULTS No Results PROCEDURES Procedure Date Ordered Result Body Site MEASURE BLOOD OXYGEN LEVEL Jun 30, 2016 IMMUNIZATIONS No Known Immunizations MEDICAL (GENERAL) HISTORY Type Description Date Medical History hyperlipidemia Medical History hypertension Surgical History Left ankle Surgical History bilateral carpal tunnel Surgical History Rt. thumb repair Surgical History Tarsal tunnel repair- Unsuccessful Hospitalization History surgeries Hospitalization History pericardiatis and pleuracy
--- OUTSIDE RECORDS SUMMARY | 2017-05-05 10:46 | XMS REPORT ---
Author RODRIGO Mclain [facility] eClinicalWorks Address Unknown Phone Unavailable Care Team Providers Care Cement Cutter Name Role Phone RODRIGO CHRISTIANSON CP Unavailable Allergies, Adverse Reactions, Alerts Substance [...] 780.57 Active Problem Obesity, unspecified 278.00 Active Assessment Other prison (current) drug therapy Z79.899 Active Assessment Obesity, unspecified E66.9 Active Assessment Panic disorder [episodic paroxysmal anxiety] without agoraphobia F41.0 Active Problem Unspecified episodic mood disorder 296.90 Active Assessment Sleep apnea, unspecified G47.30 Active Problem Heat exhaustion, unspecified 992.5 Active Assessment Major depressive disorder, recurrent, moderate F33.1 Active Problem Counseling on injury prevention V65.43 Active Medications Medication Code System Code Instructions Start Date End Date Status Dosage Neurontin [facility] [address]-91 100 mg November 21, 2013 1 capsule by Oral route 2 times per day for 14 days THEN 2 Capsule by Oral route 2 times per day PRN thereafter trazodone [facility] [address]-06 100 mg July 31, 2014 0.5 Tablet by Oral route 1 time per day PRN insomnia qHS; may take additional 0.5 tab 1 hr later Naproxen [facility] [address]-96 500 mg May 29, 2014 1 Tablet by Oral route 1 time per day Duloxetine HCl [facility] [id number] 30 MG TAKE ONE CAPSULE BY MOUTH DAILY IN ADDITION TO DULOXETINE 60 MG Benicar [facility] [address]-52 20 mg Dec 09, 2013 1 Tablet by Oral route 1 time per day Cymbalta [facility] [id number] 60 MG TAKE ONE CAPSULE BY MOUTH DAILY IN ADDITION TO DULOXETINE 30MG Duloxetine HCl [facility] [id number] 30 MG TAKE ONE CAPSULE BY MOUTH DAILY IN ADDITION TO DULOXETINE 60 MG Lorazepam [facility] [address]-14 1 mg Feb 02, 2014 0.5-2 Tablet by Oral route 4 times per day PRN Crestor [facility] [address]-31 10 mg May 29, 2014 1 Tablet by Oral route 1 time per day Aciphex [facility] [address]-25 20 MG August 18, 2011 1 Tablet by Oral route 1 time per day Gabapentin [facility] [id number] 400 MG TAKE ONE CAPSULE BY MOUTH THREE TIMES DAILY Procedures Procedure Coding System Code Date Office Visit, Est Pt., Level 3 CPT-4 14013 November 22, 2014 Vital Signs Date/Time: November 22, 2014 Cardiac Monitoring Heart Rate 88 bpm Weight 448.5 lbs Height 73 in BMI 59.17 Index Blood Pressure Diastolic 80 mmHg Blood Pressure Systolic 150 mmHg Results No Known Results Summary Purpose eClinicalWorks Submission
--- OUTSIDE RECORDS SUMMARY | 2017-05-05 10:46 | XMS REPORT ---
Author Author [facility] Address [address] [place] [address] Care Team Providers Care Food Service Order Clerk Name Role Phone LYRIC LEMOSROGER Unavailable PROBLEMS Type Condition ICD9-CM Code NFX90-AI Code Onset Dates Condition Status SNOMED Code Problem Body mass index (BMI) of 60.0-69.9 in adult Z68.44 Active 756225544 Problem Obstructive sleep apnea G47.33 Active 30288814 Problem Panic disorder with agoraphobia F40.01 Active 86214995 Problem Recurrent major depressive disorder in partial remission F33.41 Active 83471252 Problem Sleep apnea G47.30 Active 13558335 Problem Recurrent major depressive disorder in remission F33.40 Active 32516079 Problem Gastro-esophageal reflux disease without esophagitis K21.9 Active 174169839 Problem Weakness R53.1 Active 49501236 Problem Major depressive disorder, recurrent, mild F33.0 Active 027226270 Problem Anxiety disorder, unspecified F41.9 Active 005460445 Problem Hypogonadism in male E29.1 Active 54125491 Problem Hypertension I10 Active 03326625 Problem Obesity E66.9 Active 020521683 Problem Fatigue R53.83 Active 51750258 Problem Hyperlipidemia, unspecified hyperlipidemia type E78.5 Active 65105859 Problem Anxiety state, unspecified F41.1 Active 777632528 Problem Hyperinsulinemia E16.1 Active 33875451 Problem Major depressive disorder, recurrent episode, in partial remission F33.41 Active 56130951 Problem Esophageal spasm K22.4 Active 71619280 Problem Morbid (severe) obesity due to excess calories E66.01 Active 237160480 ALLERGIES Substance Reaction Event Type Date Status Compazine clonic reaction Drug Allergy Jul, Active Bydureon swelling Drug Allergy Jul, Active Viibryd rage Drug Allergy Jul, Active Wellbutrin XL suicidal ideations Drug Allergy Jul, Active Lexapro weight gain Drug Allergy Jul, Active Lamictal rash Drug Allergy Jul, Active SOCIAL HISTORY Never Assessed PLAN OF CARE Activity Details Follow Up 4 Weeks Reason: VITAL SIGNS Height 73 in 2016-07-09 Weight 448.0 lbs 2016-07-09 Heart Rate 80 bpm 2016-07-09 Respiratory Rate 20 2016-07-09 BMI 59.10 kg/m2 2016-07-09 Blood pressure systolic 165 mmHg 2016-07-09 Blood pressure diastolic 100 mmHg 2016-07-09 MEDICATIONS Medication Instructions Dosage Frequency Start Date End Date Duration Status Benicar 20 mg 1 Tablet by Oral route 1 time per day Dec, Active Cymbalta 60 mg Orally Once a day 2 tablet 24h 30 days Active Lexapro 10 mg Orally Once a day 1 tablet 24h Jul, 30 day(s) Active Gabapentin 400 mg Orally 3 times a day TAKE ONE CAPSULE BY MOUTH THREE TIMES DAILY 8h 30 Active Lorazepam 1 mg 0.5-2 Tablet by Oral route 4 times per day PRN Feb, Active BD Pen Needle Tammie U/F 32G X 4 MM as directed for use with Victoza pen injector 24h Aug, Active Saxenda 18 MG/3ML Subcutaneous Once a day dose escalation 24h 27 Jun, 2016 Active Crestor 20 mg Orally once a day 1 tablet 24h Feb, Active Testosterone Cypionate 200 MG/ML Intramuscular once every 2 weeks 1 ml Jul, Active Diltiazem HCl ER 180 MG Orally Once a day 1 capsule on an empty stomach in the morning 24h Feb, 90 days Active Insulin Pen Needle 31G X 5 [...]
--- OUTSIDE RECORDS SUMMARY | 2017-05-05 10:47 | XMS REPORT | Continuity of Care Document ---
Author Author [facility] Address Unknown Phone Unavailable Allergies Active Description Code Type Severity Reaction Onset Reported/Identified Relationship to Patient Clinical Status Yes Viibryd Drug Allergy N/A N/A 08/18/2011 Yes Viibryd Drug Allergy 08/18/2011 Yes Lexapro 20 mg tablet Drug Allergy N/A N/A 04/07/2013 Yes Wellbutrin XL 300 mg tablet extended release 24 hr Drug Allergy N/A N/A 05/02/2013 Yes Lamictal 25 mg tablet Drug Allergy N/A N/A 06/02/2013 Yes Compazine Drug Allergy N/A N/A 11/21/2013 Medications There is no data. Problems Date Dx Coded Attending Type Code Diagnosis Diagnosed By 08/18/2011 296.20 MO DEPRESSIVE SINGLE UNSPECIFIED 08/18/2011 HAYLIE SHETTY DO 296.20 MO DEPRESSIVE SINGLE UNSPECIFIED 08/18/2011 JIMMY REYEZ APRN 296.20 MO DEPRESSIVE SINGLE UNSPECIFIED 08/18/2011 JIMMY REYEZ APRN 296.20 MO DEPRESSIVE SINGLE UNSPECIFIED 08/18/2011 JIMMY REYEZ APRN 296.20 MO DEPRESSIVE SINGLE UNSPECIFIED 08/18/2011 JIMMY REYEZ APRN 296.20 MO DEPRESSIVE SINGLE UNSPECIFIED 08/18/2011 JIMMY REYEZ APRN 296.20 MO DEPRESSIVE SINGLE UNSPECIFIED 08/18/2011 JIMMY REYEZ APRN 296.20 MO DEPRESSIVE SINGLE UNSPECIFIED 08/18/2011 SEVERINO DEL VALLE MD 296.20 MO DEPRESSIVE SINGLE UNSPECIFIED 08/18/2011 SEVERINO DEL VALLE MD 296.20 MO DEPRESSIVE SINGLE UNSPECIFIED 08/18/2011 RODRIGO CHRISTIANSON JR 296.20 MO DEPRESSIVE SINGLE UNSPECIFIED 08/18/2011 RODRIGO CHRISTIANSON JR 296.20 MO DEPRESSIVE SINGLE UNSPECIFIED 08/18/2011 KAMILLA POLK APRN 296.20 MO DEPRESSIVE SINGLE UNSPECIFIED 08/18/2011 RODRIGO CHRISTIANSON JR S 296.20 MO DEPRESSIVE SINGLE UNSPECIFIED 08/18/2011 FELICITAS LAL, KAMILLA Darren 296.20 MO DEPRESSIVE SINGLE UNSPECIFIED 08/18/2011 RODRIGO CHRISTIANSON JR S 296.20 MO DEPRESSIVE SINGLE UNSPECIFIED 08/18/2011 MEGHAN SKINNER RODRIGO S 296.20 MO DEPRESSIVE SINGLE UNSPECIFIED 08/18/2011 [facility], ANAMARIA R 296.20 MO DEPRESSIVE SINGLE UNSPECIFIED 08/18/2011 RODRIGO CHRISTIANSON JR S 296.20 MO DEPRESSIVE SINGLE UNSPECIFIED 08/18/2011 [facility], ANAMARIA R 296.20 MO DEPRESSIVE SINGLE UNSPECIFIED 08/18/2011 MEGHAN SKINNER RODRIGO S 296.20 MO DEPRESSIVE SINGLE UNSPECIFIED 08/18/2011 296.20 MO DEPRESSIVE SINGLE UNSPECIFIED 10/08/2011 311 DEPRESSIVE DISORDER NOS 10/08/2011 V58.69 MEDICATION HIGH RISK 10/08/2011 HAYLIE SHETTY DO F 311 DEPRESSIVE DISORDER NOS 10/08/2011 HAYLIE SHETTY DO V58.69 MEDICATION HIGH RISK 10/08/2011 JIMMY REYEZ APRN 311 DEPRESSIVE DISORDER NOS 10/08/2011 RHIANNA REYEZ APRNTH D V58.69 MEDICATION HIGH RISK 10/08/2011 JIMMY REYEZ APRN 311 DEPRESSIVE DISORDER NOS 10/08/2011 JIMMY REYEZ APRN D V58.69 MEDICATION HIGH RISK 10/08/2011 RAY REYEZ APRNBETH D 311 DEPRESSIVE DISORDER NOS 10/08/2011 RHIANNA REYEZ APRNTH D V58.69 MEDICATION HIGH RISK 10/08/2011 RHIANNA REYEZ APRNTH D 311 DEPRESSIVE DISORDER NOS 10/08/2011 RAY REYEZ APRNBETH D V58.69 MEDICATION HIGH RISK 10/08/2011 RAY REYEZ APRNBETH D 311 DEPRESSIVE DISORDER NOS 10/08/2011 HRIANNA REYEZ APRNTH D V58.69 MEDICATION HIGH RISK 10/08/2011 JIMMY REYEZ APRN D 311 DEPRESSIVE DISORDER NOS 10/08/2011 RHIANNA REYEZ APRNTH D V58.69 MEDICATION HIGH RISK 10/08/2011 SEVERINO DEL VALLE MD 311 DEPRESSIVE DISORDER NOS 10/08/2011 SEVERINO DEL VALLE MD V58.69 MEDICATION HIGH RISK 10/08/2011 SEVERINO DEL VALLE MD 311 DEPRESSIVE DISORDER NOS 10/08/2011 SEVERINO DEL VALLE MD V58.69 MEDICATION HIGH RISK 10/08/2011 MEGHAN SKINNER RODRIGO S 311 DEPRESSIVE DISORDER NOS 10/08/2011 RODRIGO CHRISTIANSON JR S V58.69 MEDICATION HIGH RISK 10/08/2011 MEGHAN SKINNER, RODRIGO S 311 DEPRESSIVE DISORDER NOS 10/08/2011 MEGHAN SKINNER RODRIGO S V58.69 MEDICATION HIGH RISK 10/08/2011 KAMILLA POLK APRN 311 DEPRESSIVE DISORDER NOS 10/08/2011 KAMILLA POLK APRN V58.69 MEDICATION HIGH RISK 10/08/2011 MEGHAN SKINNER RODRIGO S 311 DEPRESSIVE DISORDER NOS 10/08/2011 MEGHAN SKINNER RODRIGO S V58.69 MEDICATION HIGH RISK 10/08/2011 KAMILLA POLK APRN 311 DEPRESSIVE DISORDER NOS 10/08/2011 KAMILLA POLK APRN V58.69 MEDICATION HIGH RISK 10/08/2011 MEGHAN SKINNER RODRIGO S 311 DEPRESSIVE DISORDER NOS 10/08/2011 RODRIGO CHRISTIANSON JR S V58.69 MEDICATION HIGH RISK 10/08/2011 MEGHAN SKINNER RODRIGO S 311 DEPRESSIVE DISORDER NOS 10/08/2011 MEGHAN SKINNER RODRIGO S V58.69 MEDICATION HIGH RISK 10/08/2011 [facility], ANAMARIA R 311 DEPRESSIVE DISORDER NOS 10/08/2011 [facility], ANAMARIA R V58.69 MEDICATION HIGH RISK 10/08/2011 MEGHAN SKINNER RODRIGO S 311 DEPRESSIVE DISORDER NOS 10/08/2011 MEGHAN SKINNER RODRIGO S V58.69 MEDICATION HIGH RISK 10/08/2011 [facility], ANAMARIA R 311 DEPRESSIVE DISORDER NOS 10/08/2011 [facility], ANAMARIA R V58.69 MEDICATION HIGH RISK 10/08/2011 RODRIGO CHRISTIANSON JR S 311 DEPRESSIVE DISORDER NOS 10/08/2011 RODRIGO CHRISTIANSON JR S V58.69 MEDICATION HIGH RISK 10/08/2011 311 DEPRESSIVE DISORDER NOS 10/08/2011 V58.69 MEDICATION HIGH RISK 10/09/2011 300.4 MO DYSTHYMIC DISORDER 10/09/2011 HAYLIE SHETTY DO 300.4 MO DYSTHYMIC DISORDER 10/09/2011 JIMMY REYEZ APRN 300.4 MO DYSTHYMIC DISORDER 10/09/2011 JIMMY REYEZ APRN 300.4 MO DYSTHYMIC DISORDER 10/09/2011 JIMMY REYEZ APRN 300.4 MO DYSTHYMIC DISORDER 10/09/2011 JIMMY REYEZ APRN 300.4 MO DYSTHYMIC DISORDER 10/09/2011 JIMMY REYEZ APRN 300.4 MO DYSTHYMIC DISORDER 10/09/2011 JIMMY REYEZ APRN D 300.4 MO DYSTHYMIC DISORDER 10/09/2011 SEVERINO DEL VALLE MD 300.4 MO DYSTHYMIC DISORDER 10/09/2011 SEVERINO DEL VALLE MD 300.4 MO DYSTHYMIC DISORDER 10/09/2011 MEGHAN SKINNER RODRIGO S 300.4 MO DYSTHYMIC DISORDER 10/09/2011 MEGHAN SKINNER RODRIGO S 300.4 MO DYSTHYMIC DISORDER 10/09/2011 KAMILLA POLK APRN T 300.4 MO DYSTHYMIC DISORDER 10/09/2011 MEGHAN SKINNER RODRIGO S 300.4 MO DYSTHYMIC DISORDER 10/09/2011 KAMILLA OPLK APRN T 300.4 MO DYSTHYMIC DISORDER 10/09/2011 MEGHAN SKINNER RODRIGO S 300.4 MO DYSTHYMIC DISORDER 10/09/2011 MEGHAN SKINNER RODRIGO S 300.4 MO DYSTHYMIC DISORDER 10/09/2011 [facility], ANAMARIA R 300.4 MO DYSTHYMIC DISORDER 10/09/2011 MEGHAN SKINNER RODRIGO S 300.4 MO DYSTHYMIC DISORDER 10/09/2011 [facility], ANAMARIA R 300.4 MO DYSTHYMIC DISORDER 10/09/2011 MEGHAN SKINNER RODRIGO S 300.4 MO DYSTHYMIC DISORDER 10/09/2011 300.4 MO DYSTHYMIC DISORDER 10/27/2011 296.90 MOOD DISORDER 10/27/2011 HAYLIE SHETTY DO 296.90 MOOD DISORDER 10/27/2011 JIMMY REYEZ APRN 296.90 MOOD DISORDER 10/27/2011 JIMMY REYEZ APRN 296.90 MOOD DISORDER 10/27/2011 JIMMY REYEZ APRN 296.90 MOOD DISORDER 10/27/2011 JIMMY REYEZ APRN D 296.90 MOOD DISORDER 10/27/2011 JIMMY REYEZ APRN D 296.90 MOOD DISORDER 10/27/2011 JIMMY REYEZ APRN D 296.90 MOOD DISORDER 10/27/2011 SEVERINO DEL VALLE MD 296.90 MOOD DISORDER 10/27/2011 SEVERINO DEL VALLE MD 296.90 MOOD DISORDER 10/27/2011 RODRIGO CHRISTIANSON JR S 296.90 MOOD DISORDER 10/27/2011 RODRIGO CHRISTIANSON JR S 296.90 MOOD DISORDER 10/27/2011 KAMILLA POLK APRN 296.90 MOOD DISORDER 10/27/2011 MEGHAN SKINNER, RODRIGO S 296.90 MOOD DISORDER 10/27/2011 KAMILLA POLK APRN 296.90 MOOD DISORDER 10/27/2011 RODRIGO CHRISTIANSON JR 296.90 MOOD DISORDER 10/27/2011 RODRIGO CHRISTIANSON JR S 296.90 MOOD DISORDER 10/27/2011 [facility], ANAMARIA R 296.90 MOOD DISORDER 10/27/2011 RODRIGO CHRISTIANSON JR S 296.90 MOOD DISORDER 10/27/2011 [facility], ANAMARIA R 296.90 MOOD DISORDER 10/27/2011 RODRIGO CHRISTIANSON JR S 296.90 MOOD DISORDER 10/27/2011 296.90 MOOD DISORDER 06/10/2013 SEVERINO DEL VALLE MD 278.00 OBESITY 06/10/2013 SEVERINO DEL VALLE MD 296.33 MO DEPRESSIVE RECURRENT SEVERE W/O PSYCHOTIC BEHAVIOR 06/10/2013 SEVERINO DEL VALLE MD 300.00 AN ANXIETY UNSPEC 06/10/2013 SEVERINO DEL VALLE MD 307.47 SI DYSSOMNIA NOS 06/10/2013 SEVERINO DEL VALLE MD 780.57 UNSPECIFIED SLEEP APNEA 06/10/2013 SEVERINO DEL VALLE MD 278.00 OBESITY 06/10/2013 SEVERINO DEL VALLE MD 296.33 MO DEPRESSIVE RECURRENT SEVERE W/O PSYCHOTIC BEHAVIOR 06/10/2013 SEVERINO DEL VALLE MD 300.00 AN ANXIETY UNSPEC 06/10/2013 SEVERINO DEL VALLE MD 307.47 SI DYSSOMNIA NOS 06/10/2013 SEVERINO DEL VALLE MD 780.57 UNSPECIFIED SLEEP APNEA 06/10/2013 RODRIGO CHRISTIANSON JR 278.00 OBESITY 06/10/2013 RODRIGO CHRISTIANSON JR 296.33 MO DEPRESSIVE RECURRENT SEVERE W/O PSYCHOTIC BEHAVIOR 06/10/2013 RODRIGO CHRISTIANSON JR 300.00 AN ANXIETY UNSPEC 06/10/2013 RODRIGO CHRISTIANSON JR 307.47 SI DYSSOMNIA NOS 06/10/2013 RODRIGO CHRISTIANSON JR 780.57 UNSPECIFIED SLEEP APNEA 06/10/2013 RODRIGO CHRISTIANSON JR 278.00 OBESITY 06/10/2013 RODRIGO CHRISTIANSON JR 296.33 MO DEPRESSIVE RECURRENT SEVERE W/O PSYCHOTIC BEHAVIOR 06/10/2013 RODRIGO CHRISTIANSON JR 300.00 AN ANXIETY UNSPEC 06/10/2013 RODRIGO CHRISTIANSON JR 307.47 SI DYSSOMNIA NOS 06/10/2013 RODRIGO CHRISTIANSON JR 780.57 UNSPECIFIED SLEEP APNEA 06/10/2013 KAMILLA POLK APRN 278.00 OBESITY 06/10/2013 KAMILLA POLK APRN 296.33 MO DEPRESSIVE RECURRENT SEVERE W/O PSYCHOTIC BEHAVIOR 06/10/2013 KAMILLA POLK APRN 300.00 AN ANXIETY UNSPEC 06/10/2013 KAMILLA POLK APRN 307.47 SI DYSSOMNIA NOS 06/10/2013 KAMILLA POLK APRN 780.57 UNSPECIFIED SLEEP APNEA 06/10/2013 RODRIGO CHRISTIANSON JR 278.00 OBESITY 06/10/2013 RODRIGO CHRISTIANSON JR 296.33 MO DEPRESSIVE RECURRENT SEVERE W/O PSYCHOTIC BEHAVIOR 06/10/2013 RODRIGO CHRISTIANSON JR 300.00 AN ANXIETY UNSPEC 06/10/2013 RODRIGO CHRISTIANSON JR 307.47 SI DYSSOMNIA NOS 06/10/2013 RODRIGO CHRISTIANSON JR 780.57 UNSPECIFIED SLEEP APNEA 06/10/2013 KAMILLA POLK APRN 278.00 OBESITY 06/10/2013 KAMILLA POLK APRN 296.33 MO DEPRESSIVE RECURRENT SEVERE W/O PSYCHOTIC BEHAVIOR 06/10/2013 KAMILLA POLK APRN 300.00 AN ANXIETY UNSPEC 06/10/2013 KAMILLA POLK APRN 307.47 SI DYSSOMNIA NOS 06/10/2013 KAMILLA POLK APRN 780.57 UNSPECIFIED SLEEP APNEA 06/10/2013 RODRIGO CHRISTIANSON JR 278.00 OBESITY 06/10/2013 RODRIGO CHRISTIANSON JR 296.33 MO DEPRESSIVE RECURRENT SEVERE W/O PSYCHOTIC BEHAVIOR 06/10/2013 RODRIGO CHRISTIANSON JR 300.00 AN ANXIETY UNSPEC 06/10/2013 RODRIGO CHRISTIANSON JR 307.47 SI DYSSOMNIA NOS 06/10/2013 RODRIGO CHRISTIANSON JR 780.57 UNSPECIFIED SLEEP APNEA 06/10/2013 RODRIGO CHRISTIANSON JR 278.00 OBESITY 06/10/2013 RODRIGO CHRISTIANSON JR S 296.33 MO DEPRESSIVE RECURRENT SEVERE W/O PSYCHOTIC BEHAVIOR 06/10/2013 RODRIGO CHRISTIANSON JR 300.00 AN ANXIETY UNSPEC 06/10/2013 RODRIGO CHRISTIANSON JR 307.47 SI DYSSOMNIA NOS 06/10/2013 RODRIGO CHRISTIANSON JR 780.57 UNSPECIFIED SLEEP APNEA 06/10/2013 [facility], ANAMARIA R 278.00 OBESITY 06/10/2013 [facility], ANAMARIA R 296.33 MO DEPRESSIVE RECURRENT SEVERE W/O PSYCHOTIC BEHAVIOR 06/10/2013 [facility], ANAMARIA R 300.00 AN ANXIETY UNSPEC 06/10/2013 [facility], ANAMARIA R 307.47 SI DYSSOMNIA NOS 06/10/2013 [facility], ANAMARIA R 780.57 UNSPECIFIED SLEEP APNEA 06/10/2013 RODRIGO CHRISTIANSON JR S 278.00 OBESITY 06/10/2013 RODRIGO CHRISTIANSON JR S 296.33 MO DEPRESSIVE RECURRENT SEVERE W/O PSYCHOTIC BEHAVIOR 06/10/2013 RODRIGO CHRISTIANSON JR S 300.00 AN ANXIETY UNSPEC 06/10/2013 RODRIGO CHRISTIANSON JR 307.47 SI DYSSOMNIA NOS 06/10/2013 RODRIGO CHRISTIANSON JR 780.57 UNSPECIFIED SLEEP APNEA 06/10/2013 [facility], ANAAMRIA R 278.00 OBESITY 06/10/2013 [facility], ANAMARIA R 296.33 MO DEPRESSIVE RECURRENT SEVERE W/O PSYCHOTIC BEHAVIOR 06/10/2013 [facility], ANAMARIA R 300.00 AN ANXIETY UNSPEC 06/10/2013 [facility], ANAMARIA R 307.47 SI DYSSOMNIA NOS 06/10/2013 [facility], ANAMARIA R 780.57 UNSPECIFIED SLEEP APNEA 06/10/2013 RODRIGO CHRISTIANSON JR S 278.00 OBESITY 06/10/2013 RODRIGO CHRISTIANSON JR S 296.33 MO DEPRESSIVE RECURRENT SEVERE W/O PSYCHOTIC BEHAVIOR 06/10/2013 RODRIGO CHRISTIANSON JR S 300.00 AN ANXIETY UNSPEC 06/10/2013 RODRIGO CHRISTIANSON JR 307.47 SI DYSSOMNIA NOS 06/10/2013 RODRIGO CHRISTIANSON JR 780.57 UNSPECIFIED SLEEP APNEA 11/18/2013 KAMILLA POLK APRN 992.5 HEAT EXHAUSTION UNSPECIFIED 11/18/2013 KAMILLA POLK APRN V65.43 COUNSELING ON INJURY PREVENTION 11/18/2013 RODRIGO CHRISTIANSON JR 992.5 HEAT EXHAUSTION UNSPECIFIED 11/18/2013 RODRIGO CHRISTIANOSN JR V65.43 COUNSELING ON INJURY PREVENTION 11/18/2013 KAMILLA POLK APRN 992.5 HEAT EXHAUSTION UNSPECIFIED 11/18/2013 KAMILLA POLK APRN V65.43 COUNSELING ON INJURY PREVENTION 11/18/2013 RODRIGO CHRISTIANSON JR 992.5 HEAT EXHAUSTION UNSPECIFIED 11/18/2013 RODRIGO CHRISTIANSON JR V65.43 COUNSELING ON INJURY PREVENTION 11/18/2013 RODRIGO CHRISTIANSON JR 992.5 HEAT EXHAUSTION UNSPECIFIED 11/18/2013 RODRIGO CHRISTIANSON JR V65.43 COUNSELING ON INJURY PREVENTION 11/18/2013 [facility] 992.5 HEAT EXHAUSTION UNSPECIFIED 11/18/2013 [facility] V65.43 COUNSELING ON INJURY PREVENTION 11/18/2013 RODRIGO CHRISTIANSON JR 992.5 HEAT EXHAUSTION UNSPECIFIED 11/18/2013 RODRIGO CHRISTIANSON JR V65.43 COUNSELING ON INJURY PREVENTION 11/18/2013 [facility] 992.5 HEAT EXHAUSTION UNSPECIFIED 11/18/2013 [facility] V65.43 COUNSELING ON INJURY PREVENTION 11/18/2013 RODRIGO CHRISTIANSON JR 992.5 HEAT EXHAUSTION UNSPECIFIED 11/18/2013 RODRIGO CHRISTIANSON JR V65.43 COUNSELING ON INJURY PREVENTION 01/04/2014 [facility] 300.01 AN PANIC DIS W/O AGORA 01/04/2014 RODRIGO CHRISTIANSON JR 300.01 AN PANIC DIS W/O AGORA 01/04/2014 [facility] 300.01 AN PANIC DIS W/O AGORA 01/04/2014 RODRIGO CHRISTIANSON JR 300.01 AN PANIC DIS W/O AGORA Procedures Code Description [place] [address] ROUTINE VENIPUNCTURE 06/04/2012 49942 UA LONG DIP 06/04/2012 33979 CBC 06/04/2012 25759 LIVER PANEL (LFT) 06/05/2012 38308 RENAL PROFILE 06/05/2012 [id number] GFR CALC (RESULT ONLY) 06/05/2012 15939 TSH 06/05/2012 35211 LITHIUM 06/05/2012 37461 ROUTINE VENIPUNCTURE 10/25/2012 00334 UA LONG DIP 10/25/2012 52355 CBC 10/25/2012 32621 CMP 10/25/2012 [id number] GFR CALC (RESULT ONLY) 10/25/2012 05985 LITHIUM 10/25/2012 92534 TSH 10/26/2012 19769 TESTOSTERONE PANEL (FREE, TOTAL, and SHBG) 10/30/2012 13305 PSYCH DIAGNOSTIC EVALUATION 01/04/2014 2001F WEIGHT CHECK 02/08/2014 71068 PSYTX PT&/FAMILY 45 MINUTES 02/08/2014 27667 PSYTX PT&/FAMILY 45 MINUTES 03/24/2014 Results There is no data. Encounters ACCT No. Visit Date/Time Discharge Status Pt. Type Provider Facility Loc./Unit Complaint [id number] 07/31/2014 16:24:00 07/31/2014 23:59:59 CLS Outpatient RODRIGO CHRISTIANSON JR [id number] 03/24/2014 08:55:00 03/24/2014 23:59:59 CLS Outpatient ANAMARIA DICKSON [id number] 02/08/2014 11:18:00 02/08/2014 23:59:59 CLS Outpatient RODRIGO CHRISTIANSON JR [id number] 01/04/2014 12:56:00 01/04/2014 23:59:59 CLS Outpatient ANAMARIA DICKSON [id number] 12/26/2013 14:10:00 12/26/2013 23:59:59 CLS Outpatient RODRIGO CHRISTIANSON JR [id number] 12/12/2013 13:55:00 12/12/2013 23:59:59 CLS Outpatient RODRIGO CHRISTIANSON JR [id number] 12/09/2013 10:32:00 12/09/2013 23:59:59 CLS Outpatient KAMILLA POLK APRN [id number] 11/21/2013 14:35:00 11/21/2013 23:59:59 CLS Outpatient RODRIGO CHRISTIANSON JR [id number] 11/18/2013 09:25:00 11/18/2013 23:59:59 CLS Outpatient KAMILLA POLK APRN [id number] 10/03/2013 12:50:00 10/03/2013 23:59:59 CLS Outpatient RODRIGO CHRISTIANSON JR [id number] 07/01/2013 13:24:00 07/01/2013 23:59:59 CLS Outpatient RODRIGO CHRISTIANSON JR [id number] 07/01/2013 13:24:00 07/01/2013 23:59:59 CLS Outpatient SEVERINO DEL VALLE MD [id number] 06/10/2013 10:39:00 06/10/2013 23:59:59 CLS Outpatient SEVERINO DEL VALLE MD [id number] 05/10/2013 15:29:00 05/10/2013 23:59:59 CLS Outpatient JIMMY REYEZ APRN [id number] 05/10/2013 15:29:00 05/10/2013 23:59:59 CLS Outpatient JIMMY REYEZ APRN [id number] 04/07/2013 10:29:00 04/07/2013 23:59:59 CLS Outpatient JIMMY REYEZ APRN [id number] 04/07/2013 10:29:00 04/07/2013 23:59:59 CLS Outpatient JIMMY REYEZ APRN [id number] 01/06/2013 12:04:00 01/06/2013 23:59:59 CLS Outpatient JIMMY REYEZ APRN [id number] 01/06/2013 12:04:00 01/06/2013 23:59:59 CLS Outpatient JIMMY REYEZ APRN [id number] 06/04/2012 13:54:00 06/04/2012 23:59:59 CLS Outpatient HAYLIE SHETTY DO [id number] 01/07/2012 15:52:00 01/07/2012 23:59:59 CLS Outpatient [id number] 01/07/2012 15:52:00 01/07/2012 23:59:59 CLS Outpatient
[2017-05-05] MEDS ORDERED: PANT40TA3 (10:50)
[2017-05-05] MEDS ORDERED: HYDR-3820 (10:50)
[2017-05-05] MEDS ORDERED: PROM25TA14 (10:50)
[2017-05-05] MEDS ORDERED: DILT180C (10:50)
[2017-05-05] MEDS ORDERED: Gabapentin (10:50)
[2017-05-05 11:36] LABS: BILIRUBIN,URINE NEGATIVE (NEGATIVE); CLARITY,URINE CLEAR; COLOR,URINE YELLOW; GLUCOSE, URINE (UA) NEGATIVE (NEGATIVE); KETONES,URINE NEGATIVE (NEGATIVE); LEUKOCYTE ESTERASE ,URINE NEGATIVE (NEGATIVE); NITRITE,URINE NEGATIVE (NEGATIVE); PH,URINE 5 (5-9); PROTEIN,URINE NEGATIVE (NEGATIVE); UROBILINOGEN,URINE NORMAL (NORMAL)
--- NOTE | 2017-05-05 11:36 | ED Abdominal Pain ---
General Chief Complaint: General Problems/Pain Stated Complaint: LETHARGIC,ABD PAIN History of Present Illness Time Seen By Provider: 11:10 Initial Comments 31-year-old male presents for generalized abdominal pain, nausea, lethargy. He denies vomiting or diarrhea. He was able to eat two hard-boiled eggs this morning for breakfast. Last bowel movement was 2 days ago. He had gastric sleeve surgery on March [id number], in [place]. He has lost approximately 50 pounds since surgery. Late March 2017, the patient was diagnosed with pancreatitis he was [place] at [facility] [place] [facility] He is currently on pain medication for this (Hydrocodone/APA 10/325 mg). He reports that he stopped Lexapro Cymbalta and Neurontin at the time of this gastric sleeve surgery he has slowly been resuming the Lexapro and Cymbalta. He was evaluated 04/30/17 at [facility] and again today. He reports having labs drawn this morning. Timing/Duration: Intermittent Severity/Quality: Mild Location: Generalized Abdomen Radiation: No Radiation Modifying Factors: Improves With Resting Associated Symptoms: Nausea/Vomiting, Syncope, Weakness Allergies and Home Medications Allergies Coded Allergies: prochlorperazine (Verified Allergy, Intermediate, 05/05/17) Home Medications Diltiazem HCl 180 Mg Cap.er.24h, (Reported) Hydrocodone/Acetaminophen 1 Each Tablet, (Reported) Pantoprazole Sodium 40 Mg Tablet., (Reported) Promethazine HCl 25 Mg Tablet, (Reported) [Gabapentin] , (Reported) Review of Systems Constitutional: see HPI, dizziness, malaise, weakness, weight loss Gastrointestinal: See HPI, Abdominal Pain, Nausea, Poor Appetite, Other ( history of pancreatitis) All Other Systems Reviewed Negative Unless Noted: Yes Past Qeunbyx-Aoaavl-Qeutmc Hx Patient Social History Alcohol Use: Denies Use Recreational Drug Use: No Smoking Status: Never a Smoker Recent Foreign Travel: No Contact w/Someone Who Travel: No Surgeries History of Surgeries: Yes (GASTRIC SLEEVE) Respiratory History of Respiratory Disorde: No Cardiovascular History of Cardiac Disorders: No Neurological History of Neurological Disord: No Genitourinary History of Genitourinary Disor: No Gastrointestinal History of Gastrointestinal Di: No Musculoskeletal History of Musculoskeletal Dis: No Endocrine History of Endocrine Disorders: No HEENT History of HEENT Disorders: No Cancer History of Cancer: No Psychosocial Behavioral Health Disorders: Anxiety, Depression Reviewed Nursing Assessment Reviewed/Agree w Nursing PMH: Yes Physical Exam Vital Signs VS - Last 72 Hours, by Label 05/05/17 05/05/17 10:42 13:58 Temp 98.0 Pulse 77 60 Resp 18 18 B/P (MAP) 133/78 (96) Pulse Ox 99 98 O2 Delivery Room Air Capillary Refill : General Appearance: WD/WN, no apparent distress HEENT: PERRL/EOMI, normal ENT inspection, TMs normal, pharynx normal Neck: non-tender, full range of motion, supple, normal inspection, No lymphadenopathy (R), No lymphadenopathy (L), No thyromegaly, other (skin turgor less than 2 seconds) Respiratory: chest non-tender, lungs clear, normal breath sounds Cardiovascular: normal peripheral pulses, regular rate, rhythm Gastrointestinal: normal bowel sounds, non tender, soft, distended, No rebound , tenderness (generalized), No hepatomegaly, No spleenomegaly Extremities: normal range of motion, non-tender, normal inspection, normal capillary refill Neurologic/Psychiatric: no motor/sensory deficits, alert, normal mood/affect, oriented x 3 Skin: normal color Progress/Results/Core Measures Results/Orders Lab Results Laboratory Tests Test 05/05/17 11:25 05/05/17 11:35 Range/Units Urine Color YELLOW Urine Clarity CLEAR Urine pH 5 5-9 Urine Specific [place] 1.020 1.016-1.022 Urine Protein NEGATIVE NEGATIVE Urine Glucose (UA) NEGATIVE NEGATIVE Urine Ketones NEGATIVE NEGATIVE Urine Nitrite NEGATIVE NEGATIVE Urine Bilirubin NEGATIVE NEGATIVE Urine Urobilinogen NORMAL NORMAL MG/DL Urine Leukocyte Esterase NEGATIVE NEGATIVE Urine RBC (Auto) 1+ H NEGATIVE Urine RBC RARE /HPF Urine WBC 0-2 /HPF Urine Crystals NONE /LPF Urine Bacteria TRACE /HPF Urine Casts NONE /LPF Urine Mucus SMALL H /LPF Urine Culture Indicated NO Urine Opiates Screen POSITIVE H NEGATIVE Urine Oxycodone Screen NEGATIVE NEGATIVE Urine Methadone Screen NEGATIVE NEGATIVE Urine Propoxyphene Screen NEGATIVE NEGATIVE Urine Barbiturates Screen NEGATIVE NEGATIVE Ur Tricyclic Antidepressants Screen NEGATIVE NEGATIVE Urine Phencyclidine Screen NEGATIVE NEGATIVE Urine Amphetamines Screen NEGATIVE NEGATIVE Urine Methamphetamines Screen NEGATIVE NEGATIVE Urine Benzodiazepines Screen POSITIVE H NEGATIVE Urine Cocaine Screen NEGATIVE NEGATIVE Urine Cannabinoids Screen NEGATIVE NEGATIVE White Blood Count 7.4 4.3-11.0 10^3/uL Red Blood Count 5.15 4.35-5.85 10^6/uL Hemoglobin 15.2 13.3-17.7 G/DL Hematocrit 44 40-54 % Mean Corpuscular Volume 85 80-99 FL Mean Corpuscular Hemoglobin 30 25-34 PG Mean Corpuscular Hemoglobin Concent 35 32-36 G/DL Red Cell Distribution Width 12.9 10.0-14.5 % Platelet Count 183 130-400 10^3/uL Mean Platelet Volume 11.5 H 7.4-10.4 FL Neutrophils (%) (Auto) 73 42-75 % Lymphocytes (%) (Auto) 18 12-44 % Monocytes (%) (Auto) 8 0-12 % Eosinophils (%) (Auto) 1 0-10 % Basophils (%) (Auto) 0 0-10 % Neutrophils # (Auto) 5.4 1.8-7.8 X 10^3 Lymphocytes # (Auto) 1.3 1.0-4.0 X 10^3 Monocytes # (Auto) 0.6 0.0-1.0 X 10^3 Eosinophils # (Auto) 0.0 0.0-0.3 10^3/uL Basophils # (Auto) 0.0 0.0-0.1 10^3/uL Sodium Level 139 135-145 MMOL/L Potassium Level 4.7 3.6-5.0 MMOL/L Chloride Level 104 98-107 MMOL/L Carbon Dioxide Level 26 21-32 MMOL/L Anion Gap 9 5-14 MMOL/L Blood Urea Nitrogen 14 7-18 MG/DL Creatinine 0.77 0.60-1.30 MG/DL Estimat Glomerular Filtration Rate > 60 BUN/Creatinine Ratio 18 Glucose Level 101 70-105 MG/DL Calcium Level 9.6 8.5-10.1 MG/DL Total Bilirubin 0.7 0.1-1.0 MG/DL Aspartate Amino Transf (AST/SGOT) 24 5-34 U/L Alanine Aminotransferase (ALT/SGPT) 32 0-55 U/L Alkaline Phosphatase 87 40-136 U/L C-Reactive Protein High Sensitivity 0.11 0.00-0.50 MG/DL Total Protein 7.1 6.4-8.2 GM/DL Albumin 4.1 3.2-4.5 GM/DL Amylase Level 34 25-125 U/L Lipase 28 8-78 U/L TSH [place] Testing 0.60 0.35-4.94 UIU/ML My Orders Orders - JUAN F BERRIOSP Drug Screen Stat (Urine) (05/05/17 11:21) Ua Culture If Indicated (05/05/17 11:21) Saline Lock/Iv-Start (05/05/17 11:27) Amylase (05/05/17 11:27) Cbc With Automated Diff (05/05/17 11:27) Comprehensive Metabolic Panel (05/05/17 11:27) Hs C Reactive Protein (05/05/17 11:27) Lipase (05/05/17 11:27) Thyroid Analyzer (05/05/17 11:27) Saline Lock/Iv-Start (05/05/17 11:51) Ns Iv 1000 Ml (Sodium Chloride 0.9%) (05/05/17 11:51) Medications Given in ED Current Medications Medications Dose Ordered Sig/[place] Route Start Time Stop Time Status Last Admin Dose Admin Sodium Chloride 1,000 ml @ 0 mls/hr Q0M ONCE IV 05/05/17 11:51 05/05/17 11:52 DC 05/05/17 11:58 1,000 MLS/HR Vital Signs/I&O Vital Sign - Last 12Hours 05/05/17 05/05/17 10:42 13:58 Temp 98.0 Pulse 77 60 Resp 18 18 B/P (MAP) 133/78 (96) Pulse Ox 99 98 O2 Delivery Room Air Progress Note : Time: 11:10 Progress Note Initial evaluation completed, attempted to obtain lab results from [facility], unavailable for 1-2 days, new labs will be drawn here. IV normal saline 1 L. patient reports history of anxiety, he sees Danuta Martinez APRN for this. 1145 Labs all essentially normal. 1250 discussed urine drug screen with patient, positive for benzodiazepines. He reports that he is taking Ativan that was prescribed for him after his gastric sleeve surgery. Last night he had difficulty sleeping and took one every 3 hours. Patient denies homicidal or suicidal ideations. He has an appointment tomorrow with Dr. Pickens for mental health evaluation and treatment. Patient does report now that he has resumed taking his Cymbalta and Lexapro. 1310 discharge planning discussed with the patient and his grandfather, all questions answered and return caution reviewed. Stressed the importance of the patient taking hydrocodone and Ativan only as prescribed and no more often than this. He will keep his appointment with mental health for tomorrow and his appointment with gastroenterology for later this week. Departure Impression Impression: Primary Impression: Lethargy Additional Impression: Abdominal pain Qualified Codes: R10.84 - Generalized abdominal pain Disposition: 01 HOME, SELF-CARE Condition: Stable Departure-Patient Inst. Decision time for Depature: 13:40 Referrals: [facility] (PCP) Primary Care Physician DANUTA MARTINEZ (Family) Primary Care Physician Patient Instructions: Acute Abdomen (Belly Pain), Adult (DC), Anxiety, Adult ( DC) Add. Discharge Instructions: Keep appointment with grain origination specialist for later this week and with Dr. Pickens for tomorrow. Use Ativan every 8 hours and no more frequently than this. Eat small, frequent meals and increase water intake. Follow-up with [facility] if anxiety continues to be a problem. Return to emergency department for abdominal pain, vomiting or diarrhea, or new problems. All discharge instructions reviewed with patient and/or family. Voiced understanding. Copy Copies To 1: SEVERINO DEL VALLE MD, AMY ARNP May 05, 2017 11:36
[2017-05-05 11:43] LABS: BASOPHILS % (AUTO) 0 % (0-10); EOSINOPHILS % (AUTO) 1 % (0-10); HEMATOCRIT 44 % (40-54); HEMOGLOBIN 15.2 G/DL (13.3-17.7); LYMPHOCYTES # (AUTO) 1.3 X 10^3 (1.0-4.0); LYMPHOCYTES % (AUTO) 18 % (12-44); MEAN CORPUSCULAR HEMOGLOBIN 30 PG (25-34); MEAN CORPUSCULAR HGB CONC 35 G/DL (32-36); MEAN CORPUSCULAR VOLUME 85 FL (80-99); MEAN PLATELET VOLUME 11.5 FL (7.4-10.4); MONOCYTES # (AUTO) 0.6 X 10^3 (0.0-1.0); MONOCYTES % (AUTO) 8 % (0-12); NEUTROPHILS # (AUTO) 5.4 X 10^3 (1.8-7.8); NEUTROPHILS % (AUTO) 73 % (42-75); PLATELET COUNT 183 10^3/uL (130-400); RED BLOOD COUNT 5.15 10^6/uL (4.35-5.85); RED CELL DISTRIBUTION WIDTH 12.9 % (10.0-14.5); WHITE BLOOD COUNT 7.4 10^3/uL (4.3-11.0)
[2017-05-05 11:44] LABS: BACTERIA,URINE TRACE /HPF; RBC,URINE RARE /HPF; WBC,URINE 0-2 /HPF
[2017-05-05 11:46] LABS: BENZODIAZEPINES SCREEN URINE POSITIVE (NEGATIVE)
[2017-05-05 11:47] LABS: AMPHETAMINE SCREEN, URINE NEGATIVE (NEGATIVE); BARBITURATE SCREEN URINE NEGATIVE (NEGATIVE); CANNABINOID SCREEN, URINE NEGATIVE (NEGATIVE); COCAINE SCREEN URINE NEGATIVE (NEGATIVE); METHADONE STAT NEGATIVE (NEGATIVE); METHAMPHETAMINE SCREEN URINE S NEGATIVE (NEGATIVE); OPIATE SCREEN URINE POSITIVE (NEGATIVE); OXYCODONE STAT NEGATIVE (NEGATIVE); PROPOXYPHENE STAT NEGATIVE (NEGATIVE); TRICYCLIC ANTIDEPRESSANTS SCRE NEGATIVE (NEGATIVE)
[2017-05-05] MEDS ORDERED: NS IV 1000 ML 1,000 ML IV ONE (11:51)
[2017-05-05 12:07] LABS: ALANINE AMINOTRANSFERASE 32 U/L (0-55); ALBUMIN 4.1 GM/DL (3.2-4.5); ALKALINE PHOSPHATASE 87 U/L (40-136); AMYLASE 34 U/L (25-125); BILIRUBIN,TOTAL 0.7 MG/DL (0.1-1.0); BUN/CREATININE RATIO 18; CALCIUM 9.6 MG/DL (8.5-10.1); CARBON DIOXIDE 26 MMOL/L (21-32); CHLORIDE 104 MMOL/L (98-107); CREATININE SERUM 0.77 MG/DL (0.60-1.30); GFR ESTIMATED > 60; GLUCOSE 101 MG/DL (70-105); LIPASE 28 U/L (8-78); POTASSIUM 4.7 MMOL/L (3.6-5.0); SODIUM 139 MMOL/L (135-145); TOTAL PROTEIN 7.1 GM/DL (6.4-8.2)
[2017-05-05 13:58] VITALS: BP 141/84
== END 2017-05-05 14:03 | disposition home or self-care (01) ==
LOC: ER 10:40
DX: R10.84 Generalized abdominal pain (principal); R53.83 Other fatigue; F41.9 Anxiety disorder, unspecified; F32.9 Major depressive disorder, single episode, unspecified; Z98.84 Bariatric surgery status
CPT/HCPCS: 36415; 80053; 80306; 81000; 82150; 83690; 84443; 85025; 86141